=== PATIENT | female | born 1985 | race African-American/Black ===

== ENCOUNTER 2024-03-28 18:41 | Emergency (ER) | payer OTHER, SELFPAY ==
[2024-03-28 18:45] VITALS: BP 116/71; PULSE 85; TEMP 36.5; O2SAT 98
--- NOTE | 2024-03-28 18:57 | ED_ITS ---
HPI HPI - General Adult General Chief complaint: Urogenital-Female Stated complaint: FEMALE ISSUES Time Seen by Provider: 03/28/24 18:53 Source: patient Mode of arrival: walk-in History of Present Illness HPI narrative: Patient is a 39-year-old female who presents to the emergency department from the [facility] where she is currently in detox for evaluation of uterine prolapse. She was having a bowel movement and straining to pass a stool when she felt something pushing out of her vagina. The staff at [facility] states that they looked at the area and suggested that it was uterine prolapse and wa nted the patient emergently evaluated in the emergency department. She has no other focal medical complaints at this time. Related Data Previous Rx's ?Medication ?Instructions ?Recorded docusate sodium 50 mg capsule 100 mg (2 x 50 mg) PO BID PRN 03/28/24 (Colace Clear) constipation #20 caps Allergies Allergy/AdvReac Type Severity Reaction Status Date / Time bee venom protein (honey bee) Allergy Severe Verified 03/28/24 18:50 ibuprofen Allergy Severe Verified 03/28/24 18:50 NSAIDS (Non-Steroidal Allergy Severe Verified 03/28/24 18:50 Anti-Inflamma Penicillins Allergy Severe Verified 03/28/24 18:50 red dye Allergy Severe Verified 03/28/24 18:50 sumatriptan Allergy Severe Verified 03/28/24 18:50 tree nuts Allergy Severe Uncoded 03/28/24 18:50 Opioid HPI Opioid Management Most Recent Opioid Data: No Data to Display Review of Systems ROS Constitutional Denies: fever or chills Ears, nose, mouth, and throat Denies: throat pain or nasal congestion Respiratory Denies: shortness of breath Gastrointestinal Denies: nausea or vomiting Integumentary/Breast Denies: rash Neurological Denies: headache Hematologic/Lymphatic Denies: easy bruising or easy bleeding Exam Narrative Exam Narrative: Gen.: Awake, alert, in no distress Head: Normocephalic, atraumatic ENT: Moist mucous membranes Respiratory: No respiratory distress Gastrointestinal: Abdomen is soft, nondistended and nontender to palpation [employer]: Vaginal exam with a mild uterine prolapse, no extension of the prolapse past the labia. No bleeding or drainage noted.Patient examined with Francheska Dunne RN at bedside throughout the duration of the exam. Extremities: Moves extremities equally Psych: Normal mood and affect Neuro: No focal neuro deficit Skin: Warm, dry, intact Constitutional Vital Signs, click to edit/add: Last Vital Signs Temp 97.7 F 03/28/24 18:45 Pulse 85 03/28/24 18:45 Resp 16 03/28/24 18:45 BP 116/71 03/28/24 18:45 Pulse Ox 98 03/28/24 18:45 O2 Del Method Room Air 03/28/24 18:45 Course Vital Signs Vital signs: Vital Signs Temperature 97.7 F 03/28/24 18:45 Pulse Rate 85 03/28/24 18:45 Respiratory Rate 16 03/28/24 18:45 Blood Pressure 116/71 03/28/24 18:45 Pulse Oximetry 98 03/28/24 18:45 Oxygen Delivery Method Room Air 03/28/24 18:45 Temperature 97.7 F 03/28/24 18:45 Pulse Rate 85 03/28/24 18:45 Respiratory Rate 16 03/28/24 18:45 Blood Pressure 116/71 03/28/24 18:45 Pulse Oximetry 98 03/28/24 18:45 Oxygen Delivery Method Room Air 03/28/24 18:45 Medical Decision Making MDM Narrative Medical decision making narrative: Patient is hemodynamically stable with evidence of a mild uterine prolapse. She is insisting that this needs to be emergently managed and she was given education and reassurance as to how the uterine prolapse can be managed as an outpatient with gynecology. She was given a referral for local gynecology, stool softener so that she can avoid straining and return to the ER if symptoms change or worsen. She has stable vital signs, benign abdominal exam and has no need for any additional evaluation at this time. Medical Records Medical records reviewed: Yes I reviewed the patient's medical records Discharge Plan Discharge Stand Alone Forms: Portal Instructions Chief Complaint: Urogenital-Female Clinical Impression: Uterine prolapse Patient Disposition: Home, Self-Care Time of Disposition Decision: 18:53 Condition: Good Prescriptions / Home Meds: New Colace Clear 50 mg capsule 100 mg PO BID PRN (Reason: constipation) Qty: 20 0RF Print Language: Slovak Instructions: Uterine Prolapse (ED) Referrals: Sylvester Giles DO [Physician] - As soon as possible Physician,Non-Staff, MD [Primary Care Provider] - 1 week
== END 2024-03-28 19:03 | disposition home or self-care (01) ==
PROVIDERS: Emergency Provider Emergency Medicine
DX: N81.4 Uterovaginal prolapse, unspecified (principal)
CPT/HCPCS: 99282